=== PATIENT | male | born 1970 | race Caucasian/White ===

== ENCOUNTER 2017-09-07 13:19 | Inpatient (IN) | payer MEDICAID ==
[2017-09-07] MEDS ORDERED: OLANZapine 10 MG/2 ML VIAL ONE (13:33)
[2017-09-07] MEDS ORDERED: LORazepam 2 MG/ML INJ IVP ONE (13:35)
[2017-09-07 13:37] LABS: PLATELET COUNT 245 10^3/uL (150-400)
[2017-09-07] MEDS ORDERED: OLANZapine 10 MG/2 ML VIAL IV ONE (13:38)
--- NOTE | 2017-09-07 13:42 | EDPHY ---
H & P Stated Complaint: pt presents with psychiatic complaint, confusion and poss high BS Source: Patient Exam Limitations: No limitations - Personal History Current Tetanus Diphtheria and Acellular Pertussis (TDAP): Unsure - Medical/Surgical History Hx Asthma: No Hx Chronic Respiratory Disease: No Hx Diabetes: No Hx Cardiac Disease: No Hx Renal Disease: No Hx Cirrhosis: No Hx Alcoholism: No Hx HIV/AIDS: No Hx Splenectomy or Spleen Trauma: No Other PMH: bipoar, schizophrenia, PTSD - Social History Smoking Status: Former smoker Time Seen by Provider: 09/07/17 13:33 HPI/ROS: CHIEF COMPLAINT: Altered mental status, psychotic HISTORY OF PRESENT ILLNESS: The patient reportedly has a history of bipolar mood disorder and schizophrenia. He is brought in by police and EMS with psychosis and agitation. The patient is unable to provide any coherent history in the emergency department. The patient was brought into resuscitation room where he required physical and chemical restraint. In reviewing his prior records he has been hospitalized for inpatient psychiatric care. He has presented with acute psychosis in the past. REVIEW OF SYSTEMS: A comprehensive 10 point review of systems is unobtainable secondary to altered mental status (Vipul Ford) - Physical Exam Exam: General Appearance: Alert, agitated, combative Eyes: Pupils equal and round no pallor or injection ENT, Mouth: Mucous membranes moist Respiratory: There are no retractions, lungs are clear to auscultation Cardiovascular: Tachycardic Gastrointestinal: Abdomen is soft and nontender, no masses, bowel sounds normal Neurological: Grossly normal motor exam Skin: Warm and dry, no rashes Musculoskeletal: Neck is supple nontender Extremities: symmetrical, full range of motion Psychiatric: Psychotic, screaming, agitated (Vipul Ford) Constitutional: Initial Vital Signs Temperature (C) 37.6 C 09/07/17 13:21 Heart Rate 107 H 09/07/17 13:21 Respiratory Rate 34 H 09/07/17 13:21 Blood Pressure 118/82 H 09/07/17 13:21 O2 Sat (%) 99 09/07/17 13:21 O2 Delivery Mode Room Air Allergies/Adverse Reactions: clozapine [From Clozaril] Allergy (Verified 09/08/17 11:36) haloperidol [From Haldol] Allergy (Verified 04/15/13 15:38) Home Medications: Medication Instructions Recorded Divalproex ER [Depakote ER 500 MG 1,500 mg PO DAILY16 04/14/13 (RX)] OLANZapine DISINTEGR [ZyPREXA 30 mg PO DAILY16 04/14/13 ZYDIS 10 mg (RX)] Medical Decision Making - Diagnostics EKG Interpretation: EKG: Complete interpretation has been separately recorded in the [facility] archive. Summary impression: Sinus tachycardia, rate 103 (Vipul Ford) ED Course/Re-evaluation: The patient required physical straits. He received 10 mg of Zyprexa and 1 mg of Ativan for sedation. The patient was placed on a quality assurance monitor. The patient was noted to have evidence of rhabdomyolysis with an elevated CPK. Given his altered mental status and rhabdomyolysis he was taken for a CT scan of the head which demonstrates no evidence of an intracranial hemorrhage. The patient had an IV established. He received several L of normal saline. I re-evaluated the patient at 6:00 p.m.. He is now alert and much more conversant. He is no longer agitated and is asking for food. A repeat CPK was ordered is found to be decreasing. The patient's rhabdomyolysis has been medically cleared. The patient is currently on M1 psychiatric hold secondary to his presenting psychosis. We are still awaiting a urine toxicology at 8:00 p.m.. The patient will be turned over to Dr. Schaffer at shift change. (Vipul Ford) 9pm: This pt presented with extreme agitation requiring physical and chemical restraints. He presented in rhabdomyolysis, received 2l IV NS and now has a decreasing CK. Urine tox screen is positive for THC only. He is currently calm and cooperative. He complains of pain all over, but is unable to tell me where he has pain. Given that his last CK was still over 9000, I will repeat a CK and give him another L of fluid. If he continues to have a decreasing CK, he will be medically cleared for mental health evaluation. 1030pm: repeat CK is increasing. Will continue IVF and admit for rhabdomyolysis. He will need to go to the ICU because he is on an M1 hold. I considered critical care time on this pt, but I only spent 20 minutes in caring for him. The hospitalist service was consulted for admission. (Lisa Schaffer) Differential Diagnosis: Differential diagnosis considered includes intracranial hemorrhage, skull fracture, metabolic derangement, postictal state, rhabdomyolysis, dehydration, medication side effect, psychosis (Vipul Ford) - Data Points Laboratory Results: Laboratory Results 09/08/17 05:00 09/08/17 05:00 Medications Given: Divalproex Sodium (Depakote Er) 1,500 mg PO DAILY16 LEO Stop: 03/07/18 15:59 Last Admin: 09/08/17 16:23 Dose: 1,500 mg Sodium Chloride (Ns) 1,000 mls @ 150 mls/hr IV CONT LEO Stop: 03/06/18 22:44 Last Admin: 09/09/17 05:22 Dose: 1,000 mls Lorazepam (Ativan Injection) 0.5 - 1 mg IVP Q8HRS PRN PRN Reason: Anxiety, Unable to Take PO Stop: 03/06/18 22:42 Last Admin: 09/08/17 02:33 Dose: 1 mg Olanzapine (Zyprexa Zydis) 30 mg PO DAILY16 LEO Stop: 03/07/18 15:59 Last Admin: 09/08/17 16:23 Dose: 30 mg Discontinued Medications Enoxaparin Sodium (Lovenox) 40 mg SC DAILY LEO Stop: 03/07/18 08:59 Last Admin: 09/08/17 10:35 Dose: Not Given Sodium Chloride (Ns) 1,000 mls @ 0 mls/hr IV EDNOW ONE; Wide Open PRN Reason: Protocol Stop: 09/07/17 16:36 Last Admin: 09/07/17 17:05 Dose: 1,000 mls Sodium Chloride (Ns) 1,000 mls @ 0 mls/hr IV EDNOW ONE; Wide Open PRN Reason: Protocol Stop: 09/07/17 16:36 Last Admin: 09/07/17 17:05 Dose: 1,000 mls Sodium Chloride (Ns) 1,000 mls @ 0 mls/hr IV ONCE ONE; Wide Open PRN Reason: Protocol Stop: 09/07/17 21:36 Last Admin: 09/07/17 21:43 Dose: 1,000 mls Sodium Chloride (Ns) 1,000 mls @ 200 mls/hr IV ONCE ONE PRN Reason: Protocol Stop: 09/08/17 03:36 Last Admin: 09/07/17 22:50 Dose: 1,000 mls Lorazepam (Ativan Injection) 1 mg IVP EDNOW ONE Stop: 09/07/17 13:36 Last Admin: 09/07/17 13:40 Dose: 1 mg Olanzapine (Zyprexa Im Injection) 10 mg IV EDNOW ONE Stop: 09/07/17 13:39 Last Admin: 09/07/17 13:40 Dose: 5 mg Departure - Departure Disposition: [facility] Inpatient Acute Clinical Impression: Acute psychosis Rhabdomyolysis Qualifiers: Rhabdomyolysis type: non-traumatic Qualified Code(s): M62.82 - Rhabdomyolysis Condition: Fair
--- NOTE | 2017-09-07 14:31 | CPEKG ---
Heart Rate: 103 RR Interval: 583 P-R Interval: 164 QRSD Interval: 84 QT Interval: 384 QTC Interval: 503 P [place]: 69 QRS [place]: 53 T Wave [place]: 54 EKG Severity - ABNORMAL ECG - EKG Impression: SINUS TACHYCARDIA Electronically Signed By: Vipul Ford 07-Sep-2017 18:37:25
[2017-09-07 14:40] LABS: CREATINE KINASE 13070 IU/L (0-224)
[2017-09-07] MEDS ORDERED: NS 1,000 ML IV ONE ×4 (16:35→22:37)
[2017-09-07 19:43] LABS: CREATINE KINASE 9970 IU/L (0-224)
[2017-09-07 22:16] LABS: CREATINE KINASE 11560 IU/L (0-224)
[2017-09-07] MEDS ORDERED: ONDANSETRON 4 MG/2 ML VIAL IVP PRN (22:43)
[2017-09-07] MEDS ORDERED: ACETAMINOPHEN 325 MG TAB PO PRN (22:43)
[2017-09-07] MEDS ORDERED: LORazepam 2 MG/ML INJ IVP PRN (22:43)
[2017-09-07] MEDS ORDERED: OLANZapine 10 MG/2 ML VIAL IM PRN (22:49)
--- NOTE | 2017-09-07 23:15 | PDGENHP ---
History and Physical - Chief Complaint agitation, rhabdomyolysis - History of Present Illness Source-Patient is somnolent and sedated. History limited to discussion with ED provider and review of EMR. HPI - this is a 47-year-old gentleman with past medical history significant for bipolar disorder, schizophrenia who presents emergency department with focal PD for severe agitation. History is quite limited details are slim. Patient required chemical and physical restraints. He has received Ativan and Zyprexa and has been sedated. Patient's laboratory studies were significant for elevated CK of greater than 10,000. Patient has received IV fluids and despite this his CK remains quite elevated. His renal function is intact. Patient has been put on a M1 hold and is not quite medically cleared for discharge to inpatient psychiatric facility. History Information - Allergies/Home Medication List Allergies/Adverse Reactions: haloperidol [From Haldol] Allergy (Verified 04/15/13 15:38) Clozaril Allergy (Uncoded 04/15/13 16:59) Home Medications: Divalproex ER [Depakote ER 500 MG (RX)] 1,500 mg PO DAILY16 04/14/13 [Last Taken Unknown] OLANZapine DISINTEGR [ZyPREXA ZYDIS 10 mg (RX)] 25 mg PO DAILY16 04/14/13 [Last Taken Unknown] I have personally reviewed and updated: family history, medical history, social history, surgical history - Past Medical History Additional medical history: Schizophrenia, bipolar disorder - Surgical History Additional surgical history: Unable to obtain as patient is sedated. None listed in EMR. - Family History Additional family history: Unable to obtain secondary to patient's sedation. - Social History Smoking Status: Former smoker Drug Use: Marijuana Additional social history: Patient's U tox positive for marijuana. Review of Systems Review of Systems: Unable to obtain secondary to patient's sedation somnolence. Physical Exam Physical Exam: Temp Pulse Resp BP Pulse Ox 36.7 C 108 H 20 114/60 95 09/07/17 16:00 09/07/17 22:27 09/07/17 22:27 09/07/17 22:27 09/07/17 22:27 Selected Entries 09/07/17 13:21 Blood Pressure Automatic Method Heart Rate 107 H Respiratory 34 H Rate O2 Sat (%) 99 Temperature (C) 37.6 C Blood Pressure 118/82 H Mean Arterial 94 Pressure (MAP) Temperature Oral Source Constitutional: no apparent distress, unkempt, other (Somnolent and sedated. Patient does open his eyes and says yes to just a few questions before falling asleep again.) Eyes: PERRL (Pupils equal round decreased reactivity light bilaterally and symmetric.), anicteric sclera, No EOMI (Unable to assess. Patient with voluntary lateral gaze intact.), No scleral injection Ears, Nose, Mouth, Throat: no oral mucosal ulcers, dry mucous membranes, No poor dentition Cardiovascular: pulses symmetric bilaterally, tachycardia, No systolic murmur Peripheral Pulses: 2+: dorsalis-pedis (R), dorsalis-pedis (L) Respiratory: no respiratory distress, no rales or rhonchi, clear to auscultation , No expiratory wheeze Gastrointestinal: normoactive bowel sounds, soft, non-tender abdomen, no palpable masses, No santos's sign, No guarding, No distension Genitourinary: no bladder tenderness, No jones in urethra Skin: warm, normal color, no rashes or abrasions Musculoskeletal: other (Limited exam. Patient is able to open his eyes and turn his head but does not move his extremities as he falls back asleep.) Neurologic: other (No facial drooping. Patient again is somnolent and sedated.) Psychiatric: other (Limited exam patient is somnolent and sedated.), No agitated Lab Data & Imaging Review 09/07/17 13:31 09/07/17 21:45 WBC 15.40 10^3/uL (3.80-9.50) H 09/07/17 13:31 RBC 5.00 10^6/uL (4.40-6.38) 09/07/17 13:31 Hgb 15.5 g/dL (13.7-17.5) 09/07/17 13:31 Hct 43.5 % (40.0-51.0) 09/07/17 13:31 MCV 87.0 fL (81.5-99.8) 09/07/17 13:31 MCH 31.0 pg (27.9-34.1) 09/07/17 13:31 MCHC 35.6 g/dL (32.4-36.7) 09/07/17 13:31 RDW 12.5 % (11.5-15.2) 09/07/17 13:31 Plt Count 245 10^3/uL (150-400) 09/07/17 13:31 MPV 9.7 fL (8.7-11.7) 09/07/17 13:31 Neut % (Auto) 90.6 % (39.3-74.2) H 09/07/17 13:31 Lymph % (Auto) 5.0 % (15.0-45.0) L 09/07/17 13:31 [place] % (Auto) 3.7 % (4.5-13.0) L 09/07/17 13:31 Eos % (Auto) 0.0 % (0.6-7.6) L 09/07/17 13:31 Baso % (Auto) 0.2 % (0.3-1.7) L 09/07/17 13:31 Nucleat RBC Rel Count 0.0 % (0.0-0.2) 09/07/17 13:31 Absolute Neuts (auto) 13.95 10^3/uL (1.70-6.50) H 09/07/17 13:31 Absolute Lymphs (auto) 0.77 10^3/uL (1.00-3.00) L 09/07/17 13:31 Absolute Monos (auto) 0.57 10^3/uL (0.30-0.80) 09/07/17 13:31 Absolute Eos (auto) 0.00 10^3/uL (0.03-0.40) L 09/07/17 13:31 Absolute Basos (auto) 0.03 10^3/uL (0.02-0.10) 09/07/17 13:31 Absolute Nucleated RBC 0.00 10^3/uL (0-0.01) 09/07/17 13: Immature Gran % 0.5 % (0.0-1.1) 09/07/17 13: Immature Gran # 0.08 10^3/uL (0.00-0.10) 09/07/17 13:31 Puncture Site RIGHT RADIAL 09/07/17 14:20 Patient Temperature 37.0 DEGREES 09/07/17 14:20 pCO2 24 mmHg (34-38) L 09/07/17 14:20 pO2 91 mmHg (65-75) H 09/07/17 14:20 Total CO2 12 mEq/L (23-27) L 09/07/17 14:20 ABG pH 7.29 (7.35-7.45) L 09/07/17 14:20 ABG HCO3 11 mEq/L (22-26) L 09/07/17 14:20 ABG O2 Saturation 95 % (92-95) 09/07/17 14:20 ABG Base Excess -13.8 mEq/L (-2.5-2.5) L 09/07/17 14:20 Sodium 139 mEq/L (135-145) 09/07/17 13:31 Potassium 4.0 mEq/L (3.5-5.2) 09/07/17 13:31 Chloride 102 mEq/L (97-110) 09/07/17 13:31 Carbon Dioxide 8 mEq/l (22-31) L* 09/07/17 13:31 Anion Gap 29 mEq/L (8-16) H 09/07/17 13:31 BUN 29 mg/dL (7-23) H 09/07/17 13:31 Creatinine 1.0 mg/dL (0.7-1.3) 09/07/17 13:31 Estimated GFR > 60 09/07/17 13:31 Glucose 88 mg/dL (70-100) 09/07/17 13:31 Calcium 10.0 mg/dL (8.5-10.4) 09/07/17 13:31 Creatine Kinase 82496 IU/L (0-224) H 09/07/17 21:45 CK-MB (CK-2) Fraction 36.40 ng/mL (0.00-3.19) H 09/07/17 18:28 CK-MB (CK-2) % 0.4 % (0.0-4.0) 09/07/17 18:28 Creatine Kinase Interp NEGATIVE (NEGATIVE) 09/07/17 18:28 Urine Color YELLOW 09/07/17 20:25 Urine Appearance CLEAR 09/07/17 20:25 Urine pH 5.0 (5.0-7.5) 09/07/17 20:[address] [place] 1.026 (1.002-1.030) 09/07/17 20:25 Urine Protein 1+ (NEGATIVE) H 09/07/17 20:25 Urine Ketones 2+ (NEGATIVE) H 09/07/17 20:25 Urine Blood 2+ (NEGATIVE) H 09/07/17 20:25 Urine Nitrate NEGATIVE (NEGATIVE) 09/07/17 20:25 Urine Bilirubin NEGATIVE (NEGATIVE) 09/07/17 20:25 Urine Urobilinogen NEGATIVE EU (0.2-1.0) 09/07/17 20:25 Ur Leukocyte Esterase NEGATIVE (NEGATIVE) 09/07/17 20:25 Urine RBC 1-3 /hpf (0-3) 09/07/17 20:25 Urine WBC 1-3 /hpf (0-3) 09/07/17 20:25 Ur Epithelial Cells TRACE /lpf (NONE-1+) 09/07/17 20:25 Hyaline Casts 1-5 /lpf (0-1) 09/07/17 20:25 Urine Mucus TRACE /lpf (NONE-1+) 09/07/17 20:25 Urine Glucose 1+ (NEGATIVE) H 09/07/17 20:25 Urine Opiates Screen NEGATIVE (NEGATIVE) 09/07/17 20:25 Urine Barbiturates NEGATIVE (NEGATIVE) 09/07/17 20:25 Ur Phencyclidine Scrn NEGATIVE (NEGATIVE) 09/07/17 20:25 Ur Amphetamine Screen NEGATIVE (NEGATIVE) 09/07/17 20:25 U Benzodiazepines Scrn NEGATIVE (NEGATIVE) 09/07/17 20:25 Urine Cocaine Screen NEGATIVE (NEGATIVE) 09/07/17 20:25 U Marijuana (THC) Screen NON-NEGATIVE (NEGATIVE) H 09/07/17 20:25 Ethyl Alcohol < 10 mg/dL (0-10) 09/07/17 18:28 Imaging Review: CT of the Head (Without Contrast) Indication: Altered mental status Comparison: None available Technique: Standard noncontrast head CT protocol utilizing 5 mm thick collimated slices and field of view 23 cm. Dose reduction techniques were utilized. Findings: No intracranial hemorrhage, mass, ischemia, swelling, or extraaxial fluid collection. Incidentally noted prominent retrocerebellar cerebrospinal fluid with normal- appearing fourth ventricle and normal are followed to the cerebellar hemispheres. The ventricles are normal caliber and midline. The montero-white matter there is leftward septal deviation. Has normal attenuation. The bones are unremarkable. The paranasal sinuses are clear. The right frontal sinus is not pneumatized. Remote nasal bone fracture noted. Impression: 1. No evidence of acute intracranial abnormality. 2. Incidental note of nathan-cisterna magna. Differential consideration of arachnoid cyst is less likely given symmetry. Findings and recommendations discussed with Vipul Ford at 5:09 PM hour, . EKG additional interpertation: Sinus tachycardia in the [address] changes. Some slight people changes with likely related rate. Q-wave in lead 3 only. QTC 503. Assessment & Plan Assessment: Acute psychosis (Acute) - with history of bipolar disorder and schizophrenia. Zyprexa will be made available p.r.n.. If the patient should wake and is cooperative will plan to resume his home Depakote and Zyprexa. Rhabdomyolysis (Acute) - cause for patient's rhabdo is unclear at this time. He is not able answer any questions or provide history regarding any injuries or falls. There is no evidence of trauma on exam. Will continue with IV fluid hydration and plan to repeat CKs. Leukocytosis - likely reactive in setting of significant dehydration and psychosis. Continue with IV fluid hydration patient is afebrile. Repeat CBC in the morning. Metabolic AG acidosis - improved after IV fluids. Continue monitor a.m. BMP. FEN - IV fluids continuous as tolerated. Encourage oral hydration once patient' s sedation is improved. Diet advanced also on patient's mentation improved. PPX-SCDs. Lovenox if patient should stay additional day otherwise encourage mobilization. Anticipate short hospital stay. Cor-by default will remain full at this time. Patient with acute psychosis and able answer. Disposition-patient be admitted to ICU for M1 hold and close monitoring to observation status. If patient's CK improves by a.m. The plan to transfer to an inpatient psychiatric facility.
[2017-09-08] MEDS: NS 1,000 ML IV SCH ×4 (04:15→22:39)
[2017-09-08 05:34] LABS: PLATELET COUNT 168 10^3/uL (150-400)
[2017-09-08 08:17] LABS: CREATINE KINASE 8842 IU/L (0-224)
--- NOTE | 2017-09-08 08:27 | HOSPPROG ---
Hospitalist Progress Note Assessment/Plan: #Acute psychosis: has been off psych meds. Negative CTH. No signs infection. M1 hold. TLC eval once medically clear #Acute rhabdo: making urine, normal renal function. Cont aggressive IVFs #THC use: + utox #Leukocytosis: stress inflammation, dehydration. Nearly resolved. Negative UA, CXR #Diet: regular #DVT: low-risk, ambulator #Disp: requires ICU admission for M1 hold, aggressive IVFs Subjective: "I am dying. Everything is killing me" Objective: Vital Signs Temp Pulse Resp BP Pulse Ox 36.7 C 90 18 121/60 H 96 09/07/17 16:00 09/08/17 07:22 09/08/17 07:22 09/07/17 23:40 09/08/17 07:22 Laboratory Results 09/08/17 05:00 09/08/17 05:00 09/07/17 09/08/17 09/09/17 05:59 05:59 05:59 Intake Total 4230 Output Total 0 Balance 4230 - Physical Exam Constitutional: no apparent distress Eyes: PERRL Ears, Nose, Mouth, Throat: moist mucous membranes Cardiovascular: regular rate and rhythym Respiratory: no respiratory distress Gastrointestinal: normoactive bowel sounds Genitourinary: no bladder fullness Skin: warm, other (some scabbed over wounds left hand) Musculoskeletal: full muscle strength Neurologic: AAOx3, CN II-XII Intact Psychiatric: anxious, depressed ICD10 Worksheet Patient Problems: Problems Problem Status Onset Acute psychosis Acute Rhabdomyolysis Acute Bipolar 1 disorder Acute Bipolar affective disorder, current episode manic with psychotic symptoms Acute Bipolar affective disorder, current episode manic without psychotic symptoms Acute
[2017-09-08] MEDS ORDERED: ENOXAPARIN 40 MG/0.4 ML SYR SC SCH (09:00)
--- NOTE | 2017-09-08 09:27 | ASMTCMCOM ---
CM Note CM Note Notes: 47yr old male admitted for Acute psychosis, Bipolar, Schizophrenia, Rhabdo. Patient is homeless and on an M1 Hold. He will be assessed by [facility] when medically stable. CM to follow. Date Signed: 09/08/2017 09:26 AM Electronically Signed By:Joselin Pastor LCSW
--- NOTE | 2017-09-08 09:39 | ASMTLACE ---
MESFIN Acuity / Level of Answers: No Care: Did the patient have an inpatient admission? Comorbidities - select Answers: Other Notes: Psychotic break, Rhabdo all that apply # of Emergency department Answers: 1-2 visits in the last 6 months Social determinants Answers: History of substance abuse (ETOH, street drugs, prescription drugs, etc.) Homelessness (street, long term) Mental health diagnosis (anxiety, depression, pers onality disorders, etc.) Lack of community resources and/or lack of social support (no pcp, lives alone, transportation, bob d) Score: 15 Date Signed: 09/08/2017 09:38 AM Electronically Signed By:Joselin Pastor LCSW
[2017-09-08] MEDS: DIVALPROEX ER 500 MG TAB PO SCH (16:23)
[2017-09-08] MEDS: OLANZapine DISINTEGR 10 MG TAB PO SCH (16:23)
[2017-09-09] MEDS: NS 1,000 ML IV SCH ×3 (05:22→13:01)
[2017-09-09 08:46] LABS: CREATINE KINASE 4512 IU/L (0-224)
--- NOTE | 2017-09-09 08:53 | PDMN ---
Medical Necessity Medical necessity: change to IP; los>2mn for rhabdo, dehydration, acute psychosis off medication; requires M1 hold in ICU, aggressive IVF, BH eval when medically stable; hx schizophrenia and bipolar; per order and progress note 09/08
[2017-09-09] MEDS ORDERED: PROTOCOL MAGNESIUM 1 DOSE IV PRN (09:18)
[2017-09-09] MEDS ORDERED: PROTOCOL POTASSIUM 1 DOSE MISC PRN (09:18)
[2017-09-09] MEDS ORDERED: POTASSIUM CL 10 MEQ TAB PO ONE ×2 (09:20→12:30)
[2017-09-09] MEDS ORDERED: POTASSIUM CL 20 MEQ TAB PO ONE ×2 (12:30→20:58)
[2017-09-09 13:59] LABS: CREATINE KINASE 4372 IU/L (0-224)
--- NOTE | 2017-09-09 15:10 | HOSPPROG ---
Hospitalist Progress Note Assessment/Plan: #Acute psychosis: has been off psych meds. Negative CTH. No signs infection. M1 hold. TLC eval once medically clear #Acute rhabdo: making urine, normal renal function. Cont aggressive IVFs #THC use: + utox #Leukocytosis: stress inflammation, dehydration. Nearly resolved. Negative UA, CXR #Diet: regular #DVT: low-risk, ambulator #Disp: requires ICU admission for M1 hold, aggressive IVFs Plan: Additional IVF Likely ready for d/c tomorrow d/w ICU team, speedboat driver, nurse, during team rounds Subjective: no new complaints. no o/n events Objective: Vital Signs Temp Pulse Resp BP Pulse Ox 37.1 C 87 14 142/87 H 98 09/09/17 12:00 09/09/17 12:00 09/09/17 12:00 09/09/17 12:00 09/09/17 12:00 Laboratory Results 09/09/17 07:38 09/08/17 09/09/17 09/10/17 05:59 05:59 05:59 Intake Total 3960 Balance 3960 - Physical Exam Constitutional: no apparent distress Eyes: PERRL Ears, Nose, Mouth, Throat: moist mucous membranes, hearing normal, ears appear normal Cardiovascular: regular rate and rhythym, No JVD Respiratory: no respiratory distress, no rales or rhonchi Gastrointestinal: normoactive bowel sounds, soft, non-tender abdomen Skin: warm Lymph, Heme, Immunologic: No petechiae ICD10 Worksheet Patient Problems: Problems Problem Status Onset Acute psychosis Acute Rhabdomyolysis Acute Bipolar 1 disorder Acute Bipolar affective disorder, current episode manic with psychotic symptoms Acute Bipolar affective disorder, current episode manic without psychotic symptoms Acute
[2017-09-09] MEDS: DIVALPROEX ER 500 MG TAB PO SCH (16:03)
[2017-09-09] MEDS: OLANZapine DISINTEGR 10 MG TAB PO SCH (16:04)
[2017-09-10 04:17] LABS: PLATELET COUNT 185 10^3/uL (150-400)
[2017-09-10 04:56] LABS: CREATINE KINASE 2365 IU/L (0-224)
[2017-09-10] MEDS: NS 1,000 ML IV SCH ×2 (07:06→14:13)
[2017-09-10] MEDS ORDERED: POTASSIUM CL 10 MEQ TAB PO ONE (10:04)
[2017-09-10 10:25] LABS: CREATINE KINASE 2490 IU/L (0-224)
--- NOTE | 2017-09-10 11:02 | PDDCSUM ---
Discharge Summary Discharge Summary: 47-year-old gentleman with past medical history significant for bipolar disorder , schizophrenia who presented via the emergency department with local PD for severe agitation and acute Psychosis. Please see H&P for details. Patient required chemical and physical restraints. He has received Ativan and Zyprexa and has been sedated. Patient's laboratory studies were significant for elevated CK of greater than 10,000. Patient has been put on a M1 hold. He was admitted. IVF were provided. CK was monitored and has essentially trended toward normalization. His volume status is much improved. His CK has trended below concerning levels. He is medically ready for discharge. CK will normalize on its own. He does not need further IVF. No e/o impaired renal function Ready for psychiatrical management. DDX: #Acute psychosis: has been off psych meds. Negative CTH. No signs infection. M1 hold. TLC eval once medically clear #Acute rhabdo, resolved: making urine, normal renal function. #THC use: + utox #Leukocytosis: resolved #Diet: regular Exam: NAD COMFORTABLE RRR CTA B S/NT/ND NO LE EDEMA MEDS: SEE MED REC TOTAL TIME SPENT ON DISCHARGE IS 37 MINS. D/W ICU TEAM.
[2017-09-10] MEDS: DIVALPROEX ER 500 MG TAB PO SCH (16:01)
[2017-09-10] MEDS: OLANZapine DISINTEGR 10 MG TAB PO SCH (16:01)
[2017-09-10 16:20] VITALS: BP 145/88; PULSE 79; RESP 16; TEMP 97.5; O2SAT 99
== END 2017-09-10 18:45 | DRG 885 ==
LOC: EDUNIT# → EEVIPCON 22:36 → F2N 23:50 → OBSVTOIN 09-08 15:17
PROVIDERS: ADMIT Family Medicine; ATTEND Internal Medicine
DX: F23 Brief psychotic disorder (principal); M62.82 Rhabdomyolysis; F12.90 Cannabis use, unspecified, uncomplicated; F43.10 Post-traumatic stress disorder, unspecified; F25.0 Schizoaffective disorder, bipolar type; Z87.891 Personal history of nicotine dependence
CPT/HCPCS: 80305; 96374; G0378; G0480; J2060; J2405

== ENCOUNTER 2017-09-10 19:10 | Inpatient (IN) | payer MEDICAID ==
[2017-09-10] MEDS ORDERED: LORazepam 0.5 MG TAB PO PRN (21:05)
[2017-09-10] MEDS ORDERED: IBUPROFEN 200 MG TAB PO PRN (21:21)
[2017-09-10] MEDS ORDERED: ASPIRIN EC 325 MG TAB PO PRN (21:30)
[2017-09-10] MEDS: DIVALPROEX ER 500 MG TAB PO SCH (21:35)
[2017-09-10] MEDS ORDERED: NICOTINE POLACRILEX 2 MG GUM B PRN (22:30)
[2017-09-11] MEDS: DIVALPROEX ER 500 MG TAB PO SCH ×2 (11:07→19:05)
--- NOTE | 2017-09-11 17:41 | BAPA ---
[f rep st] ADMISSION PSYCHIATRIC ASSESSMENT DATE OF SERVICE: 09/11/2017 REASON FOR ADMISSION: Patient is a 47-year-old male with a history of schizoaffective diso rder, bipolar type. He presents to our service on transfer from the intensive care unit where he was admitted after having been brought in on an M1 hold to the emergency department due to psychiatric d ecompensation and noted to have rhabdomyolysis. He was irrational and disorganized speech and stated that he had not taken his psychotropic medicines consistently for several months. He was on monitor ed medications through [facility], but had not been there for some time and he te lls me today that it had been approximately 2 months since he "took them on a regular basis". Maryuri t states to me today that he is only in the hospital "because I can't go to the bathroom". He will n ot explain this, will not say whether it is urination or bowel problems or what the problem specifica lly is. Notes from his hospitalization on the medical floor indicates that he had this similar compl aint, but had no other referable physical complaint. He stated that he had not eaten in months and t ells me that he cannot eat because of his problems going to the bathroom. He states "I can't go to t he bathroom, so I am just not going to eat anymore". He was medically cleared in the ICU and transfe rred to us for further evaluation. I get little meaningful information out of him today, as he perse verates about this problem with his going to the bathroom and is extremely guarded. He repeatedly ch ecks the door to his room, refuses to turn on the light in the room and refuses to come out of his ro om to come to my office for an interview. He abruptly terminates the interview stating that he is "t oo sick to talk to you anymore" and states that he needs to lay down. When asked if he is hearing an y voices, he states "I hear everything all the time." When asked if he wanted to take any psychotrop ic medications he states that Zyprexa has been helpful in the past, but "stopped working". He cannot identify any specific problems with the Zyprexa but states that he stopped it again because of his t rouble going to the bathroom. PAST PSYCHIATRIC HISTORY: Significant for this past diagnosis of schizoaffective disorder. He is an open client of [facility] and sees Dr. Alvarez by his report. He was previously a t this facility in March of 2013 and December of 2012, and his diagnoses at that time were schizoaffect samy disorder, bipolar type, and cannabis abuse. At his last discharge in March of 2013, he was pre scribed Depakote, Zyprexa and Ativan. ALLERGIES: Acetaminophen, clozapine and Haldol. CURRENT MEDICATIONS: Are none though he most recently apparently was taking Zyprexa 30 mg h.s. and D epakote 1500 mg daily at 1600. PAST MEDICAL HISTORY: Significant for the recent rhabdomyolysis, though there are no other documente d significant chronic health problems. SOCIAL HISTORY: Is largely unknown as patient does not answer any questions. He is apparently from [place] and was adopted as a child. He states he is not close to any family. Has no friends. He apparently lives alone in supportive housing in [place]. He has history of cannabis and alcohol use , though his current status is unknown. He denies any legal problems. FAMILY HISTORY: Unknown. ADMISSION LABORATORY: Repeat LFTs show an AST up at 129 and ALT up at 80. Last CK was 2490 drawn on 09/10 at 0800. This is up from 2365, drawn at 09/10 at 0400. I do not see a repeat of that. MENTAL STATUS EXAMINATION: Reveals a poorly groomed, though healthy-appearing male. He de monstrates overall normal level of activity, though sits in a very guarded and close body posture. H e demonstrates some hypervigilance constantly looking out the window and looking out the door in the hallway. He gets up several times during the interview, seemingly to check the doorway. He insists that the lights be off in the room during the interview. He does not make eye contact during the int erview. His speech is low in tone, slow, slightly delayed, though normal in rate and flow. His affe ct is blunted to flat. His mood is described as "really bad". His thought process is disorganized a nd perseverative on the theme of not being able to go to the bathroom. His thought content reveals w hat appears to be paranoia and hypervigilance and at times he does seem to be internally preoccupied. When asked about his auditory hallucinations, he states that he "hears everything". He is alert an d oriented to person, place, time, and situation, and his sensorium is clear. There is no evidence o f delirium. He does not answer any questions in regard to suicide, homicide, or violence. IMPRESSION: Schizoaffective disorder, bipolar type, chronic with acute exacerbation, recent medicati on noncompliance, rhabdomyolysis, possible cannabis use disorder, severity unknown. Possible alcohol use disorder, severity unknown. Patient is a 47-year-old male with a history of schizoaffective disorder. He is currently decompensated in the setting of medication noncompliance. The etiology of his rhabdomyolysis is unkn own to me and I do not see that his CK has started to go down. He was supposedly medically cleared, though I am not sure what the conversation there was. I will recheck his CK at this time just to ind icate a positive trend and consider alternative placement if it continues to increase. PLAN: 1. [facility] on [facility] hold. 2. to previous psychotropic medications. 3. Recheck labs as above. 4. Encourage fluids. 5. Estimated length of stay is 7-10 days. /[id number]/MODL
[2017-09-11] MEDS: OLANZapine DISINTEGR 10 MG TAB PO SCH (19:05)
[2017-09-12] MEDS: MAG HYDROX/AL HYDROX/SIMETH 30 ML UDCUP PO PRN (07:32)
[2017-09-12] MEDS: MAGNESIUM HYDROXIDE 30 ML UDCUP PO PRN (07:42)
[2017-09-12] MEDS: DIVALPROEX ER 500 MG TAB PO SCH ×2 (08:25→20:38)
[2017-09-12] MEDS: OLANZapine DISINTEGR 10 MG TAB PO SCH (20:38)
[2017-09-13] MEDS: DIVALPROEX ER 500 MG TAB PO SCH ×2 (08:59→20:20)
[2017-09-13] MEDS: MAGNESIUM HYDROXIDE 30 ML UDCUP PO PRN (09:04)
[2017-09-13] MEDS: MAG HYDROX/AL HYDROX/SIMETH 30 ML UDCUP PO PRN (09:48)
--- NOTE | 2017-09-13 11:55 | SOAPPROG ---
SOAP Progress Note Assessment/Plan: Assessment: 47yo CM with hx Schizoaffective do, bipolar type off medications with incr disorganization, also hx of THC use d/o 09/12/17 15:54. per staff, slept 9hr. reported AH of "everything" but not clinically appearing to respond to int stim. on eval, pt cooperative, full mahmood, casually dressed, fair/decr eye contact, nml psychom activity, nml/low vol speech, fairly monotonous tone, restricted/ blunted affect. Regarding SI, pt stated "I'm alive now", and why in hospital "b/ c the paperwork says I'm suicidal". not clearly endorsing any SI or thoughts to harm others, nor AH/VH. not appearing RIS but thought processes seem disorganized, with vague responses. A&Ox 3, altho thought it was Thursday. somatic preoccupation around constipation. was offered prn.. states no s/e to current psych meds, "they keep me from going crazy", and regarding plan for after d/c, pt stated flatly "I don't know...I'll probably go to [place]". c/o constipation but otherwise denies physical c/o and no med s/e except sedation PLAN: cont Depakote, Zyprexa. Hx of monitored meds through P but med n/c for past couple of months f/u labs 09/14, check VPA, chem panel, LFTs and CK (elevated prior to admit) cont to encourage po fluids, staff monitoring intake and pt has been eating meals. Objective: Vital Signs Temp Pulse Resp BP Pulse Ox 36.6 C 72 14 102/72 96 09/13/17 06:00 09/13/17 06:00 09/13/17 06:00 09/13/17 06:00 09/13/17 06:00 - Time Spent With Patient Time Spent With Patient: 35min - Pending Discharge Pending Discharge Within 24 Hours: No Pending Discharge Within 48 Hours: No ICD10 Worksheet Patient Problems: Problems Problem Status Onset Acute psychosis Acute Bipolar 1 disorder Acute Bipolar affective disorder, current episode manic with psychotic symptoms Acute Bipolar affective disorder, current episode manic without psychotic symptoms Acute Rhabdomyolysis Acute
--- NOTE | 2017-09-13 15:10 | SOAPPROG ---
SOAP Progress Note Assessment/Plan: Assessment: 47yo CM with hx SZA d/o off medications with incr disorganization, psychosis, admitted to ICU with rhabdo, and reported not eating for months. 09/12/17 15:54. per staff, slept 9hr. reported AH of "everything" but not clinically appearing to respond to int stim. on eval, pt cooperative, full mahmood, casually dressed, fair/decr eye contact, nml psychom activity, nml/low vol speech, fairly monotonous tone, restricted/ blunted affect. Regarding SI, pt stated "I'm alive now", and why in hospital "b/ c the paperwork says I'm suicidal". not clearly endorsing any SI or thoughts to harm others, nor AH/VH. not appearing RIS but thought processes seem disorganized, with vague responses. A&Ox 3, altho thought it was Thursday. somatic preoccupation around constipation. was offered prn.. states no s/e to current psych meds, "they keep me from going crazy", and regarding plan for after d/c, pt stated flatly "I don't know...I'll probably go to [place]". c/o constipation but otherwise denies physical c/o and no med s/e except sedation PLAN: cont Depakote, Zyprexa. Hx of monitored meds through P but med n/c for past couple of months f/u labs 09/14, check VPA, chem panel, LFTs and CK (elevated prior to admit) cont to encourage po fluids, staff monitoring intake and pt has been eating meals. 09/13/17 15:24 per staff, slept 6hr. c/o feeling "very gassy", constipated, reportedly had BM yesterday, chest pain he attributed to his continued constipation. RN gave prn Makishorex, MOM, Ativan. inconsistent physical complaints, multiple somatic complaints, and anxious. On evaluation, around 12:55, pt was making his bed and came out of room for interview. Noted with SOB but denied feeling SOB. Reported feeling much better after just had large BM, and with resolution of chest pain. Denied any cardiac hx except hx of HTN and was evaluated on treadmill 10+yrs ago, having been told just to lose weight (states he was over 300#), stop smoking and avoid salt. Clinically, however, appeared diaphoretic, with SOB, christiano w/exertion after making bed. VS checked with HR 148, recheck 138 w/pulse 104/65. Maintains he is actually feeling better without CP and does not feel SOB. CP was L-sided, sharp/stabbing but also burning. Discussed concerns about cardiac status. Called hospitalist at 1:15p, who recommended push fluids (since pt w/ poor hydration recently) and if still tachy in 1hr, send to ER. Over following hr: Pt continued tachy altho somewhat improved with 2L po fluids, but still HR 120 and P 100/66. Diaphoresis improved, reported feeling hot/sweaty briefly, but resolved. No return of CP, and improved SOB but still appearing mildly SOB, hx has not been consistently reliable. Reports having another BM. Does have intermittent nausea but not currently. Spoke with ED Dr. Tomas who accepts pt for r/o [place] and additional w/u as indicated. MSE: more engaged today, less paranoid/guarded, thoughts more linear and organized. attributes this to having had BM finally and perhaps also medications. nml speech rate/vol. good eye contact. Denied any SI/HI or any AH/ VH. Earlier today, discussed M-1 expiring at 13:05 and options avail incl d/c, sign in vol and STC. Pt agreed to sign in vol, but was told he would be placed on STC due to hx of psychiatric treatment noncompliance, and continued need for psych stabilization. Pt agreed. Informed of right to 3rd libertarian notification ( requests parents be notified of STC), rights, and legal representation. Pt expressed understanding. PLAN: -cont VPA, Zyprexa. Consider alternatives to current meds, perhaps one or the other, due to weight issues, pt reporting hx of 300#. Will not make changes at this time, as today is first day pt more linear in thoughts. -placed on STC -encouraged fluids, and still with tachycardia, recent episode of SOB/ diaphoresis/GUILLEN/CP with occasional N, and altho pt focused on his constipation, need to r/o cardiac issues. Txf to ER for eval as w/continued tachy. Objective: Vital Signs Temp Pulse Resp BP Pulse Ox 36.7 C 138 H 13 104/65 92 09/13/17 13:55 09/13/17 13:55 09/13/17 13:55 09/13/17 13:55 09/13/17 13:55 - Time Spent With Patient Time Spent With Patient: 45min - Pending Discharge Pending Discharge Within 24 Hours: No Pending Discharge Within 48 Hours: No ICD10 Worksheet Patient Problems: Problems Problem Status Onset Acute psychosis Acute Bipolar 1 disorder Acute Bipolar affective disorder, current episode manic with psychotic symptoms Acute Bipolar affective disorder, current episode manic without psychotic symptoms Acute Rhabdomyolysis Acute
[2017-09-13] MEDS: OLANZapine DISINTEGR 10 MG TAB PO SCH (20:20)
[2017-09-14] MEDS: DIVALPROEX ER 500 MG TAB PO SCH ×2 (08:18→20:38)
--- NOTE | 2017-09-14 13:48 | SOAPPROG ---
SOAP Progress Note Assessment/Plan: Assessment: Plan: Subjective: Pt seen, discussed with staff. Up walking in halls. Conversant and appropriate with me. Discussed precipitants to decompensation and he identifies stress over moving/losing housing and not sleeping as primary issues. He also stopped his SQL for about a week, but states this was inadvertent and a product of the move as well. He continues to sleep poorly, but is calmer, more linear, more appropriate, less intrusive. He is compliant with meds and states he wants to make proper arrangements for d/c. His outpatient therapist through [facility]'s visited today and spoke with him about a respite bed. Objective: Vital Signs Temp Pulse Resp BP Pulse Ox 36.6 C 95 14 115/76 97 09/14/17 06:00 09/14/17 06:00 09/14/17 06:00 09/14/17 06:00 09/14/17 06:00 MSE: Well-groomed, pleasant and coop. Affect is euthymic, stable, approp. Mood is "good." TP is generally linear, though he occasionally derails. TC reveals no evidence of delusions or hallucinations. A&Ox3. A/C are adequate to interview. No SI/HI/. - Time Spent With Patient Time Spent With Patient: 25" ICD10 Worksheet Patient Problems: Problems Problem Status Onset Acute psychosis Acute Bipolar 1 disorder Acute Bipolar affective disorder, current episode manic with psychotic symptoms Acute Bipolar affective disorder, current episode manic without psychotic symptoms Acute Rhabdomyolysis Acute
[2017-09-14] MEDS: OLANZapine DISINTEGR 10 MG TAB PO SCH (20:38)
[2017-09-15] MEDS: DIVALPROEX ER 500 MG TAB PO SCH ×2 (09:15→20:07)
[2017-09-15] MEDS: MAGNESIUM HYDROXIDE 30 ML UDCUP PO PRN (09:24)
--- NOTE | 2017-09-15 12:45 | SOAPPROG ---
SOAP Progress Note Assessment/Plan: Assessment: Plan: 09/15/17 12:45 Schizophrenia: Remains anxious, paranoid. Will CCM. Subjective: Pt seen, discussed with staff. Continues to isolate in his room. Remains somatically focused, primarily on his bowels. Compliant with meds. Offers no c /o's. Noted to sleep 9 hours last night, but he states he didn't sleep well. Objective: Vital Signs Temp Pulse Resp BP Pulse Ox 36.3 C 99 16 125/82 H 97 09/15/17 06:00 09/15/17 06:00 09/15/17 06:00 09/15/17 06:00 09/15/17 06:00 MSE: Marginally groomed, coop., though guarded. Affect is constricted, stable. Mood is "bad." TP linear, though abbreviated. Continued somatic preoccupation/perseveration. TC reveals somatic and paranoid delusions. - Time Spent With Patient Time Spent With Patient: 15" ICD10 Worksheet Patient Problems: Problems Problem Status Onset Acute psychosis Acute Bipolar 1 disorder Acute Bipolar affective disorder, current episode manic with psychotic symptoms Acute Bipolar affective disorder, current episode manic without psychotic symptoms Acute Rhabdomyolysis Acute
[2017-09-15] MEDS: OLANZapine DISINTEGR 10 MG TAB PO SCH (20:08)
[2017-09-16] MEDS: DIVALPROEX ER 500 MG TAB PO SCH ×2 (08:38→20:30)
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
[2017-09-16] MEDS: OLANZapine DISINTEGR 10 MG TAB PO SCH (20:30)
[2017-09-17] MEDS: DIVALPROEX ER 500 MG TAB PO SCH ×2 (08:38→20:26)
[2017-09-17] MEDS: OLANZapine DISINTEGR 10 MG TAB PO SCH (20:26)
[2017-09-18] MEDS: DIVALPROEX ER 500 MG TAB PO SCH ×2 (08:56→20:31)
[2017-09-18] MEDS: MAGNESIUM HYDROXIDE 30 ML UDCUP PO PRN (09:01)
--- NOTE | 2017-09-18 14:56 | SOAPPROG ---
SOAP Progress Note Assessment/Plan: Assessment: Plan: 09/15/17 12:45 Schizophrenia: Remains anxious, paranoid. Will CCM. 09/16/17 15:06 Schizophrenia: More conversant today though quite depressed looking. Likely is Schizoaffective. Will discuss possible use of antidepressant with Dr. Alvarez. 09/18/17 15:11 Schizophrenia: Slow improvement. CCM. Subjective: LATE ENTRY FOR 09/17/17. Pt seen, discussed with staff. Reports feeling "messed up." Remains focused on childhood and "bad things." Continues to isolate in his room, interacting very little with others. Objective: Vital Signs Temp Pulse Resp BP Pulse Ox 36.3 C 89 14 105/75 95 09/18/17 06:00 09/18/17 06:00 09/18/17 06:00 09/18/17 06:00 09/18/17 06:00 MSE: Anxious, guarded. Affect is constricted, stable. Mood is "bad." TP abbreviated, perseverative. TC reveals continued paranoid and somatic delusions. - Time Spent With Patient Time Spent With Patient: 15" ICD10 Worksheet Patient Problems: Problems Problem Status Onset Acute psychosis Acute Bipolar 1 disorder Acute Bipolar affective disorder, current episode manic with psychotic symptoms Acute Bipolar affective disorder, current episode manic without psychotic symptoms Acute Rhabdomyolysis Acute
[2017-09-18] MEDS: OLANZapine DISINTEGR 10 MG TAB PO SCH (20:31)
[2017-09-19 07:10] VITALS: RESP 16
[2017-09-19] MEDS: DIVALPROEX ER 500 MG TAB PO SCH ×2 (09:06→20:56)
--- NOTE | 2017-09-19 15:37 | SOAPPROG ---
SOAP Progress Note Assessment/Plan: Assessment: Per Dr. Barrett's notes: Plan: 09/15/17 12:45 Schizophrenia: Remains anxious, paranoid. Will CCM. 09/16/17 15:06 Schizophrenia: More conversant today though quite depressed looking. Likely is Schizoaffective. Will discuss possible use of antidepressant with Dr. Alvarez. 09/18/17 15:11 Schizophrenia: Slow improvement. CCM. Subjective: LATE ENTRY FOR 09/17/17. Pt seen, discussed with staff. Reports feeling "messed up." Remains focused on childhood and "bad things." Continues to isolate in his room, interacting very little with others. Plan: 09/19/17 15:34 1. CCM - no change 2. Isolates in room, refuses to participate in treatment. 3. Compliant with meds. Subjective: Met with patient, reviewed chart and d/w staff. Patient is still isolating in his room, doesn't attend groups and only comes into milieu for meals. Patient slept 8 hrs last night, denies any physical complaints and denies any psychotic sxs. He presents much more stable since resuming his medications on admission. Objective: Vital Signs Temp Pulse Resp BP Pulse Ox 36.3 C 86 16 99/65 L 95 09/19/17 06:00 09/19/17 06:00 09/19/17 06:00 09/19/17 06:00 09/19/17 06:00 MSE: Affect: Constricted Mood: "OK" TP: Tangential TC: Denies SI/HI, denies AH/VH, but still appears paranoid Insight/Judgment: Improved - Time Spent With Patient Time Spent With Patient: 20" - Pending Discharge Pending Discharge Within 24 Hours: No Pending Discharge Within 48 Hours: No ICD10 Worksheet Patient Problems: Problems Problem Status Onset Acute psychosis Acute Bipolar 1 disorder Acute Bipolar affective disorder, current episode manic with psychotic symptoms Acute Bipolar affective disorder, current episode manic without psychotic symptoms Acute Rhabdomyolysis Acute
[2017-09-19] MEDS: OLANZapine DISINTEGR 10 MG TAB PO SCH (20:55)
[2017-09-20] MEDS: DIVALPROEX ER 500 MG TAB PO SCH ×2 (08:34→20:56)
--- NOTE | 2017-09-20 15:02 | SOAPPROG ---
SOAP Progress Note Assessment/Plan: Assessment: Per Dr. Barrett's notes: Plan: 09/15/17 12:45 Schizophrenia: Remains anxious, paranoid. Will CCM. 09/16/17 15:06 Schizophrenia: More conversant today though quite depressed looking. Likely is Schizoaffective. Will discuss possible use of antidepressant with Dr. Alvarez. 09/18/17 15:11 Schizophrenia: Slow improvement. CCM. Subjective: LATE ENTRY FOR 09/17/17. Pt seen, discussed with staff. Reports feeling "messed up." Remains focused on childhood and "bad things." Continues to isolate in his room, interacting very little with others. Plan: 09/19/17 15:34 1. CCM - no change 2. Isolates in room, refuses to participate in treatment. 3. Compliant with meds. 09/20/17 14:59 1. CCM - no change 2. Taking meds, stable Subjective: Met with patient, reviewed chart and d/w staff. Patient told CC that he's not sure he can go back to his apartment. He said he found a table near [facility] and took it back to his apartment. It's not clear if he has been evicted b/c of this or not. He c/o dry mouth d/t meds. He says this is the reason he usually stops taking his meds at home. MD and RN both encouraged patient to drink plenty of water. Objective: Vital Signs Temp Pulse Resp BP Pulse Ox 36.3 C 93 16 116/69 96 09/19/17 06:00 09/20/17 06:00 09/20/17 06:00 09/20/17 06:00 09/20/17 06:00 MSE: Affect: Flat Mood: "OK" TP: Tangential TC: Denies any SI/HI, no evidence of hallucinations or RIS Insight/Judgment: Improved - Time Spent With Patient Time Spent With Patient: 15" - Pending Discharge Pending Discharge Within 24 Hours: No Pending Discharge Within 48 Hours: No ICD10 Worksheet Patient Problems: Problems Problem Status Onset Acute psychosis Acute Bipolar 1 disorder Acute Bipolar affective disorder, current episode manic with psychotic symptoms Acute Bipolar affective disorder, current episode manic without psychotic symptoms Acute Rhabdomyolysis Acute
[2017-09-20] MEDS: OLANZapine DISINTEGR 10 MG TAB PO SCH (20:56)
[2017-09-21 06:25] VITALS: BP 105/55; PULSE 89; TEMP 97.8; O2SAT 98
[2017-09-21] MEDS: DIVALPROEX ER 500 MG TAB PO SCH ×2 (08:15→21:03)
--- NOTE | 2017-09-21 15:53 | SOAPPROG ---
SOAP Progress Note Assessment/Plan: Assessment: Plan: 09/15/17 12:45 Schizophrenia: Remains anxious, paranoid. Will CCM. 09/16/17 15:06 Schizophrenia: More conversant today though quite depressed looking. Likely is Schizoaffective. Will discuss possible use of antidepressant with Dr. Alvarez. 09/18/17 15:11 Schizophrenia: Slow improvement. CCM. 09/21/17 15:52 Schizophrenia: Continued slow improvement. CCM. Subjective: Pt seen, discussed with staff, chart reviewed, discussed with Dr. Barahona. Continues to isolate in his room, rarely coming out. Paranoid, struggling to make d/c plans. Lot of negative and persecutory thoughts. Compliant with meds. No behavioral issues noted. Objective: Vital Signs Temp Pulse Resp BP Pulse Ox 36.6 C 89 16 105/55 L 98 09/21/17 06:00 09/21/17 06:00 09/21/17 06:00 09/21/17 06:00 09/21/17 06:00 - Time Spent With Patient Time Spent With Patient: 15" ICD10 Worksheet Patient Problems: Problems Problem Status Onset Acute psychosis Acute Bipolar 1 disorder Acute Bipolar affective disorder, current episode manic with psychotic symptoms Acute Bipolar affective disorder, current episode manic without psychotic symptoms Acute Rhabdomyolysis Acute
[2017-09-21] MEDS: OLANZapine DISINTEGR 10 MG TAB PO SCH (21:03)
[2017-09-22] MEDS: DIVALPROEX ER 500 MG TAB PO SCH (08:35)
--- NOTE | 2017-09-22 15:14 | BDS ---
[f rep st] [facility] DISCHARGE SUMMARY REASON FOR ADMISSION: Patient is a 47-year-old male with a history of schizoaffective diso rder. He was brought to the [address] [place] [address] unit on transfer from the intensive care unit where he was treat ed for some mild rhabdomyolysis. He had been increasingly disorganized and agitated, and had been re ferred to the hospital due to his level of symptomology, in the setting of medication noncompliance. Once medically cleared, he was transferred to our unit for further stabilization. A full descriptio n of the events preceding admission can be found in his admission history dated 09/11/2017. ADMITTING DIAGNOSES: Schizoaffective disorder, bipolar type, chronic, with acute exacerbation; recen t medication noncompliance; rhabdomyolysis; possible cannabis use disorder, severity unknown; possibl e alcohol use disorder, severity unknown. ADMISSION PHYSICAL EXAMINATION: Not performed due to having recently been transferred from the ICU. ADMISSION LABORATORY: Additional labs drawn were repeat LFTs on 09/10/2017, that showed an AST up at 129, ALT up at 82, otherwise normal. HOSPITAL COURSE: Patient [facility] inpatient unit on an M1 hold. He was pleasant and cooperative, though very guarded. He preferred to sit in his room with the lights o ff and was almost noncommunicative. He stated throughout his admission that he was having a high lev el of auditory hallucinations and, when he arrived, he was very preoccupied by this. He was also roseanne y sullen, stating that he felt sad and was noted to be tearful on several occasions. Restarted on hi s previous outpatient medications, including Depakote and Zyprexa, and he tolerated these well. He w as compliant with medicines throughout his stay. The patient's hospitalization was uncomplicated. He took his medications and gradually improved. The intensity and intrusiveness of his auditory halluc inations improved, and his affect softened. I did discuss the case with Dr. Austin Alvarez, the patient 's previous outpatient psychiatrist. Dr. Alvarez stated that the patient had been coming in for superv ised medications but had not actually had an appointment with him for over 2 years. He states that t his was typical for the patient to avoid that. He does report, however, that he was stable on the co mbination of Depakote and Zyprexa. I asked if perhaps he was appropriate for an antidepressant, and Dr. Alvarez stated he preferred to continue his current medications as they are. The patient's mood di d brighten through the course of his stay. The patient was followed by the [facility] liaison who reported to us a plan for the tigre ent to go to [facility]. He was somewhat ambivalent about this, but seemingly because he believed that he was not allowed back there. He was given multiple reassurances that he was allowed back ther and seemed to be willing to go at the time of discharge. He was agreeable also because he believed that he had surrendered his apartment and "given the keys back," though the health care technician contact ed the factory manager of the apartment complex and he apparently did no such thing and still has his apartme nt, but he has trouble believing this. CONDITION ON DISCHARGE: Stable. He remains paranoid and continues to have some level of auditory katz llucinations, though appears much better and is able to interact appropriately with others. He is katz ving no thoughts of suicide, homicide, or violence. DISCHARGE MEDICATIONS: Include Depakote 500 mg daily and 1000 mg at h.s[facility] and Zyprexa 30 mg at [facility]. DISPOSITION: Patient is to leave the hospital with [facility] staff to go to [facility]. FOLLOWUP: With Dr. Hilton at [facility]. The patient is to receive discharge instructions and followup appointment times at the time of discha e. The patient was placed on a short-term certification with the expiration of his M1 hold. Short-term certification will be terminated at time of his discharge. The patient's attitude toward discharge was guarded and somewhat suspicious. The patient did not have advance directive on file, though was a full code throughout his stay. There were no pending labs or studies at the time of his discharge. /[id number]
== END 2017-09-22 15:45 | DRG 885 ==
LOC: BBEH 19:10
PROVIDERS: ADMIT Psychiatry & Neurology Behavioral Neurology & Neuropsychiatry; ATTEND Psychiatry & Neurology Psychiatry
DX: F25.0 Schizoaffective disorder, bipolar type (principal); M62.82 Rhabdomyolysis; F12.90 Cannabis use, unspecified, uncomplicated; T43.596A Underdosing of other antipsychotics and neuroleptics, initial encounter; Z72.89 Other problems related to lifestyle

== ENCOUNTER 2017-09-13 15:49 | Emergency (ER) | payer MEDICAID ==
[2017-09-13] MEDS ORDERED: NS 1,000 ML IV ONE (16:00)
[2017-09-13] MEDS ORDERED: ASPIRIN 81 MG CHEWABLE TAB PO ONE (16:00)
--- NOTE | 2017-09-13 16:00 | EDPHY ---
H & P Time Seen by Provider: 09/13/17 15:51 HPI/ROS: CHIEF COMPLAINT: Chest pain HISTORY OF PRESENT ILLNESS: Patient is a 47-year-old male who presents emergency department from [address] [place] [address]. The patient has a history of psychosis and schizoaffective disorder. While in psychiatric treatment he developed intermittent chest pain. This primarily occurred after eating. He also was noted to have an increased heart rate of 150. He had intermittent shortness of breath. He was also noted to have diaphoresis. Patient has no previous cardiac history per report. The patient does smoke. REVIEW OF SYSTEMS: My complete review of systems is negative except as mentioned in the HPI. Past Medical/Surgical History: Includes psychosis, schizoaffective disorder Past surgical history: Noncontributory Social history: Patient smokes Smoking Status: Former smoker Physical Exam: Vitals noted. Heart rate 104 GENERAL: Well-appearing, in no acute distress, alert. HEENT: Eyes normal to inspection, normal pharynx, no signs of dehydration. NECK: No thyromegaly, no lymphadenopathy, supple. RESPIRATORY: Clear to auscultation bilaterally, no rales, rhonchi or wheezing. CVS: Mild tachycardia with regular rhythm, no rubs, murmurs, or gallops. Chest wall: No chest wall tenderness palpation. No rash ABDOMEN: Soft, nontender, nondistended, no organomegaly. BACK: Normal to inspection, no CVA tenderness. SKIN: Normal color, no rash, warm, dry. No pallor. EXTREMITIES: No pedal edema, no calf tenderness, no Homans sign or cords, no joint swelling. NEURO/PSYCH: Alert and oriented x3, normal mood and affect, normal motor sensory exam. No obvious cranial nerve deficit. Constitutional: Initial Vital Signs Temperature (C) 36.7 C 09/13/17 15:55 Heart Rate 102 H 09/13/17 15:55 Respiratory Rate 18 09/13/17 15:55 Blood Pressure 109/78 09/13/17 15:55 O2 Sat (%) 96 09/13/17 15:55 O2 Delivery Mode Room Air Allergies/Adverse Reactions: acetaminophen [From Tylenol] Allergy (Verified 09/10/17 22:42) clozapine [From Clozaril] Allergy (Verified 09/08/17 11:36) haloperidol [From Haldol] Allergy (Verified 04/15/13 15:38) Home Medications: Medication Instructions Recorded Divalproex ER [Depakote ER 500 MG 1,500 mg PO DAILY16 04/14/13 (*)] OLANZapine DISINTEGR [ZyPREXA 30 mg PO DAILY16 04/14/13 ZYDIS (*)] Medical Decision Making - Diagnostics Imaging Results: Imaging Impressions Chest X-Ray 09/13/17 16:00 Impression: Normal chest x-ray. Chest/Thorax CTA 09/13/17 17:13 Impression: 1. No evidence of pulmonary embolus using CT protocol. 2. Dominant lamellated gallstone in the gallbladder. Findings discussed with Mary Vazquez M.D. at 17:56 hour, 09/13/2017. ED Course/Re-evaluation: In the emergency department I met EMS on arrival. I took report from the potato inspector. Initial chart was created the patient has an MR count. This was loss. This is a repeat documentation. Patient was given aspirin 324 mg orally. Laboratory studies, EKG and chest x-ray were ordered. I discussed plan with the patient. I answered all his questions. EKG shows normal sinus rhythm, normal rate, normal axis, normal intervals. There are no ST or T-wave abnormalities. EKG is normal as interpreted by me. Patient's CBC and chemistry were unremarkable. The patient's troponin was negative. D-dimer was elevated at 1.12. Because of the elevated D-dimer CT angiogram was ordered. CT angio of the chest: Please refer the dictated report by Dr. Mathieu Vann. No pulmonary embolus noted. There is a gallstone present. I discussed the results with the patient. I answered all his questions. On recheck the patient was feeling well. He had no chest pain. Patient was given warnings prior to leaving. He will be sent back to [address] [place] [address]. Differential Diagnosis: My differential includes but is not limited to ACS, acute MD, dissection, aneurysm, PE, bronchitis, pneumonia, pericarditis, myocarditis, dehydration - Data Points Laboratory Results: Laboratory Results 09/13/17 15:50 09/13/17 15:50 09/13/17 09/13/17 09/13/17 15:50 15:50 15:50 WBC 7.59 10^3/uL 10^3/uL (3.80-9.50) RBC 4.87 10^6/uL 10^6/uL (4.40-6.38) Hgb 15.1 g/dL g/dL (13.7-17.5) Hct 43.7 % % (40.0-51.0) MCV 89.7 fL fL (81.5-99.8) MCH 31.0 pg pg (27.9-34.1) MCHC 34.6 g/dL g/dL (32.4-36.7) RDW 12.5 % % (11.5-15.2) Plt Count 256 10^3/uL 10^3/uL (150-400) MPV 9.4 fL fL (8.7-11.7) Neut % (Auto) 64.4 % % (39.3-74.2) Lymph % (Auto) 26.6 % % (15.0-45.0) Rich % (Auto) 7.6 % % (4.5-13.0) Eos % (Auto) 0.7 % % (0.6-7.6) Baso % (Auto) 0.4 % % (0.3-1.7) Nucleat RBC Rel Count 0.0 % % (0.0-0.2) Absolute Neuts (auto) 4.89 10^3/uL 10^3/uL (1.70-6.50) Absolute Lymphs (auto) 2.02 10^3/uL 10^3/uL (1.00-3.00) Absolute Monos (auto) 0.58 10^3/uL 10^3/uL (0.30-0.80) Absolute Eos (auto) 0.05 10^3/uL 10^3/uL (0.03-0.40) Absolute Basos (auto) 0.03 10^3/uL 10^3/uL (0.02-0.10) Absolute Nucleated RBC 0.00 10^3/uL 10^3/uL (0-0.01) Immature Gran % 0.3 % % (0.0-1.1) Immature Gran # 0.02 10^3/uL 10^3/uL (0.00-0.10) PT 12.9 SEC SEC (12.0-15.0) INR 0.95 (0.83-1.16) APTT 31.8 SEC SEC (23.0-38.0) D-Dimer 1.12 ug/mLFEU H ug/mLFEU (0.00-0.50) Sodium 139 mEq/L mEq/L (135-145) Potassium 4.7 mEq/L mEq/L (3.5-5.2) Chloride 99 mEq/L mEq/L (97-110) Carbon Dioxide 25 mEq/l mEq/l (22-31) Anion Gap 15 mEq/L mEq/L (8-16) BUN 23 mg/dL mg/dL (7-23) Creatinine 1.1 mg/dL mg/dL (0.7-1.3) Estimated GFR > 60 Glucose 68 mg/dL L mg/dL (70-100) Calcium 9.6 mg/dL mg/dL (8.5-10.4) Total Bilirubin 0.4 mg/dL mg/dL (0.1-1.4) Conjugated Bilirubin 0.4 mg/dL mg/dL (0.0-0.5) Unconjugated Bilirubin 0.0 mg/dL mg/dL (0.0-1.1) AST 41 IU/L IU/L (17-59) ALT 72 IU/L IU/L (21-72) Alkaline Phosphatase 67 IU/L IU/L (38-126) Troponin I 0.020 ng/mL ng/mL (0.000-0.034) NT-Pro-B Natriuret Pep < 11 pg/mL pg/mL (0-125) Total Protein 7.3 g/dL g/dL (6.3-8.2) Albumin 4.6 g/dL g/dL (3.5-5.0) Lipase 197 IU/L IU/L (23-300) Medications Given: Discontinued Medications Aspirin (Aspirin) 324 mg PO EDNOW ONE Stop: 09/13/17 16:01 Last Admin: 09/13/17 16:15 Dose: 324 mg Sodium Chloride (Ns) 1,000 mls @ 0 mls/hr IV EDNOW ONE; Wide Open PRN Reason: Protocol Stop: 09/13/17 16:01 Last Admin: 09/13/17 16:20 Dose: 1,000 mls Departure - Departure Disposition: [facility] Clinical Impression: Chest pain Qualifiers: Chest pain type: unspecified Qualified Code(s): R07.9 - Chest pain, unspecified Condition: Good Instructions: Chest Pain (ED) Referrals: Patient,NotPresent [Primary Care Provider] - As per Instructions
[2017-09-13 16:09] LABS: PLATELET COUNT 256 10^3/uL (150-400)
[2017-09-13 16:28] LABS: INR 0.95 (0.83-1.16); PROTIME(PATIENT) 12.9 SEC (12.0-15.0)
--- NOTE | 2017-09-13 16:30 | CPEKG ---
Heart Rate: 94 RR Interval: 638 P-R Interval: 156 QRSD Interval: 68 QT Interval: 348 QTC Interval: 436 P [place]: 47 QRS [place]: 26 T Wave [place]: 34 EKG Severity - NORMAL ECG - EKG Impression: SINUS RHYTHM Electronically Signed By: Mary Vazquez 13-Sep-2017 22:02:49
[2017-09-13] MEDS ORDERED: IOPAMIDOL (ISOVUE 370) 100 ML BTL IV ONE (17:17)
[2017-09-13 18:15] VITALS: RESP 16
[2017-09-13 19:52] VITALS: BP 117/67; PULSE 85; TEMP 97.9; O2SAT 96
== END 2017-09-13 19:52 ==
DX: R07.9 Chest pain, unspecified (principal)
CPT/HCPCS: Q9967